=== PATIENT | female | born 1990 | race Hispanic/Latino ===

== ENCOUNTER 2018-12-29 17:09 | Emergency (ER) | payer BC ==
[2018-12-29 18:41] VITALS: BP 120/85; O2SAT 97
[2018-12-29 18:43] VITALS: TEMP 99.8
== END 2018-12-29 18:41 | disposition home or self-care (01) ==
LOC: ER 17:09
DX: S82.842A Displaced bimalleolar fracture of left lower leg, initial encounter for closed fracture (principal); S20.212A Contusion of left front wall of thorax, initial encounter; V92.13XA Drowning and submersion due to being thrown overboard by motion of other powered watercraft, initial encounter; Y93.19 Activity, other involving water and watercraft; Y92.9 Unspecified place or not applicable